=== PATIENT | female | born 1955 | race Caucasian/White ===

== ENCOUNTER 2017-01-28 17:48 | Emergency (ER) | payer OTHER ==
[2017-01-28 19:00] LABS: CALCIUM 9.4 mg/dL (8.5-10.1); CARBON DIOXIDE 28.8 mmol/L (21-32); CHLORIDE SERUM 101 mmol/L (98-107); CREATININE SERUM 0.7 mg/dL (0.6-1.0); GFR1 > 60 mL/min; GLUCOSE SERUM 126 mg/dL (74-106); POTASSIUM SERUM 4.1 mmol/L (3.5-5.1); SODIUM SERUM 138 mmol/L (136-145)
[2017-01-28 19:02] LABS: BASOPHIL % 0.4 % (0-2); PLATELET COUNT 256 x10^3mcL (130-400); RED CELL DISTRIBUTION WIDTH 13.7 % (11.5-14.5)
[2017-01-28 19:04] LABS: ALBUMIN 3.4 g/dL (3.4-5.0); ALKALINE PHOSPHATASE 184 U/L (46-116); ALT/SGPT 187 U/L (14-59); BILIRUBIN TOTAL 0.7 mg/dL (0.20-1.00); LIPASE 56 IU/L (73-393); TOTAL PROTEIN, SERUM 7.1 g/dL (6.4-8.2)
[2017-01-28 19:06] LABS: microscopic required? NO
[2017-01-28 19:14] LABS: urine erythrocyte NEGATIVE (NEGATIVE)
[2017-01-28 19:15] LABS: AMYLASE 21 U/L (25-115)
[2017-01-28 19:16] LABS: AST/SGOT 194 U/L (15-37)
[2017-01-28 20:10] VITALS: BP 121/62
== END 2017-01-28 20:10 | disposition home or self-care (01) ==
LOC: ED 17:48
PROVIDERS: Emergency Medicine
DX: R10.33 Periumbilical pain (principal); F41.9 Anxiety disorder, unspecified; R74.0 Nonspecific elevation of levels of transaminase and lactic acid dehydrogenase [LDH]; M06.9 Rheumatoid arthritis, unspecified; Z90.49 Acquired absence of other specified parts of digestive tract
CPT/HCPCS: J1885; J2060; J2405; J7030

== ENCOUNTER 2017-02-02 17:26 | Emergency (ER) | payer OTHER ==
[~2017-02-02] VITALS: Ht 167.6 cm; Wt 93.0 kg
[2017-02-02 19:48] LABS: BASOPHIL % 0.3 % (0-2); PLATELET COUNT 324 x10^3mcL (130-400); RED CELL DISTRIBUTION WIDTH 14.3 % (11.5-14.5)
[2017-02-02 20:03] LABS: CALCIUM 9.5 mg/dL (8.5-10.1); CARBON DIOXIDE 23.8 mmol/L (21-32); CHLORIDE SERUM 103 mmol/L (98-107); CREATININE SERUM 0.8 mg/dL (0.6-1.0); GFR1 > 60 mL/min; GLUCOSE SERUM 130 mg/dL (74-106); POTASSIUM SERUM 3.2 mmol/L (3.5-5.1); SODIUM SERUM 140 mmol/L (136-145)
[2017-02-02 20:13] LABS: ALBUMIN 4.2 g/dL (3.4-5.0); ALKALINE PHOSPHATASE 190 U/L (46-116); ALT/SGPT 107 U/L (14-59); AST/SGOT 24 U/L (15-37); BILIRUBIN TOTAL 0.6 mg/dL (0.20-1.00); LIPASE 50 IU/L (73-393); TOTAL PROTEIN, SERUM 8.1 g/dL (6.4-8.2)
[2017-02-03 00:54] VITALS: BP 133/74
== END 2017-02-03 00:54 | disposition home or self-care (01) ==
LOC: ED 17:26
PROVIDERS: Emergency Medicine
DX: R10.33 Periumbilical pain (principal); R19.7 Diarrhea, unspecified; M06.9 Rheumatoid arthritis, unspecified; Z88.2 Allergy status to sulfonamides
CPT/HCPCS: J1885; J2270; J2405; J7030

== ENCOUNTER 2017-02-12 11:59 | Inpatient (IN) | payer OTHER ==
[~2017-02-12] VITALS: Ht 157.5 cm; Wt 91.2 kg
[2017-02-12 12:35] LABS: BASOPHIL % 0.7 % (0-2); PLATELET COUNT 252 x10^3mcL (130-400); RED CELL DISTRIBUTION WIDTH 14.3 % (11.5-14.5)
[2017-02-12 12:49] LABS: CALCIUM 9.6 mg/dL (8.5-10.1); CHLORIDE SERUM 103 mmol/L (98-107); CREATININE SERUM 0.7 mg/dL (0.6-1.0); GFR1 > 60 mL/min; GLUCOSE SERUM 99 mg/dL (74-106); POTASSIUM SERUM 3.7 mmol/L (3.5-5.1); SODIUM SERUM 140 mmol/L (136-145)
[2017-02-12 12:53] LABS: ALBUMIN 4.2 g/dL (3.4-5.0); ALKALINE PHOSPHATASE 235 U/L (46-116); ALT/SGPT 208 U/L (14-59); AST/SGOT 49 U/L (15-37); BILIRUBIN TOTAL 0.3 mg/dL (0.20-1.00); LIPASE 56 IU/L (73-393); TOTAL PROTEIN, SERUM 8.2 g/dL (6.4-8.2)
[2017-02-12 12:55] LABS: AMYLASE 23 U/L (25-115)
[2017-02-12] MEDS ORDERED: NOR10T PO (13:50)
[2017-02-12] MEDS ORDERED: KLONOPIN2 MG PO (13:51)
[2017-02-12] MEDS ORDERED: D3-50001 TAB PO (13:52)
[2017-02-12 15:13] LABS: microscopic required? NO
[2017-02-12 15:30] VITALS: BP 130/78
[2017-02-12 15:33] LABS: UA SPECIFIC GRAVITY >=1.030 (1.005-1.035); urine erythrocyte NEGATIVE (NEGATIVE)
[2017-02-12 15:35] VITALS: Ht 157.5 cm; Wt 91.2 kg
[2017-02-12 15:44] LABS: CHOLESTEROL/HDL RATIO 2.8; T3 TOTAL 1.4 ng/mL
[2017-02-12 15:45] LABS: PHOSPHOROUS 3.5 mg/dL (2.5-4.9)
[2017-02-12 16:10] LABS: FREE T4 1.13 ng/dL (0.76-1.46); FREE THYROXINE INDEX 3.2 ug/dL (1.4-4.5); T4(THYROXINE) 9.8 ug/dL (4.7-13.3)
[2017-02-12 16:51] LABS: AMPHETAMINE QUAL UR NONE DETECTED (NEG <=1000)
[2017-02-12 18:00] VITALS: BP 137/82
[2017-02-12 21:11] VITALS: BP 138/69
[2017-02-13 05:41] VITALS: BP 120/64
[2017-02-13 06:39] LABS: BASOPHIL % 0.6 % (0-2); PLATELET COUNT 208 x10^3mcL (130-400); RED CELL DISTRIBUTION WIDTH 14.4 % (11.5-14.5)
[2017-02-13 07:06] LABS: ALKALINE PHOSPHATASE 177 U/L (46-116); ALT/SGPT 155 U/L (14-59); AST/SGOT 40 U/L (15-37); BILIRUBIN TOTAL 0.3 mg/dL (0.20-1.00); CALCIUM 8.7 mg/dL (8.5-10.1); CARBON DIOXIDE 24.5 mmol/L (21-32); CHLORIDE SERUM 107 mmol/L (98-107); CREATININE SERUM 0.6 mg/dL (0.6-1.0); GFR1 > 60 mL/min; GLUCOSE SERUM 148 mg/dL (74-106); POTASSIUM SERUM 4.1 mmol/L (3.5-5.1); SODIUM SERUM 141 mmol/L (136-145); TOTAL PROTEIN, SERUM 6.6 g/dL (6.4-8.2)
[2017-02-13 07:17] LABS: ALBUMIN 3.2 g/dL (3.4-5.0)
[2017-02-13 09:38] VITALS: BP 138/90
[2017-02-13] MEDS ORDERED: PROTONIX40 MG PO (13:37)
[2017-02-13] MEDS ORDERED: NORCO1 TA2 PO (13:38)
[2017-02-13] MEDS ORDERED: COLACE100 MG PO (13:39)
[2017-02-13] MEDS ORDERED: ZOF4 PO (13:40)
[2017-02-13 14:12] VITALS: BP 138/90
[2017-02-13 14:15] VITALS: BP 138/90
== END 2017-02-13 14:26 | disposition home or self-care (01) | DRG 393 ==
LOC: ED 11:59 → DU 13:54
PROVIDERS: Internal Medicine; Specialist; ADMIT Family Medicine
PROC: 0FC98ZZ Extirpation of Matter from Common Bile Duct, Via Natural or Artificial Opening Endoscopic (ICD-10-PCS; principal; 2017-02-13 07:30)
DX: K91.86 Retained cholelithiasis following cholecystectomy (principal); N17.0 Acute kidney failure with tubular necrosis; E44.0 Moderate protein-calorie malnutrition; R73.03 Prediabetes; K29.70 Gastritis, unspecified, without bleeding; F41.9 Anxiety disorder, unspecified; M17.0 Bilateral primary osteoarthritis of knee; M51.26 Other intervertebral disc displacement, lumbar region; D75.1 Secondary polycythemia; E78.5 Hyperlipidemia, unspecified; Z79.891 Long term (current) use of opiate analgesic; Z68.36 Body mass index [BMI] 36.0-36.9, adult
CPT/HCPCS: 43262; 82962; 83880; 84439; C1769; J1170; J1885; J1956; J2175; J2250; J2405; J2704; J3010; J3490; J7030; J7120; Q0092; Q9967